=== PATIENT | male | born 1975 | race Asian ===

== ENCOUNTER 2016-07-25 18:29 | Emergency (ER) | payer OTHER ==
--- NOTE | ~2016-07-25 | EKG ---
PATIENT: LAZARO HARKINS UNIT #: [id number] Ventricular Rate: 85 BPM Atrial Rate: 85 BPM P-R Interval: 180 ms QRS Duration: 178 ms Q-T Interval: 410 ms QTC Calculation(Bezet): 487 ms P [place]: 48 degrees Calculated R [place]: -70 degrees Calculated T [place]: 87 degrees Diagnosis Line: Atrial-sensed ventricular-paced rhythm Diagnosis Line: Abnormal ECG Diagnosis Line: When compared with ECG of 30-MAR-2016 13:17, Diagnosis Line: Vent. rate has decreased BY 7 BPM Diagnosis Line: Confirmed by LUCIA YL MD ([id number]) on 07/25/2016 Diagnosis Line: 10:41:00 PM INTERPRETING MD: MALACHI PEREIRA
--- NOTE | ~2016-07-25 | CT71 ---
[facility] A Service of [facility] RADIOLOGY TEXT RESULTS PATIENT: LAZARO HARKINS LOCATION: [facility] : 79 UNIT #: [id number] AGE: [address]: Nicky Banks MD SEX: M ORDER DR: [id number] [facility]. [place], [place] [address] [id number] E MR#: [id number] Acc #: [id number] NAME: LAZARO HARKINS : 1975 SEX: M STUDY DATE/TIME: 07/25/2016 17:30 UNIT: [facility] ROOM: STUDY DESCRIPTION: CT Head Wo Contrast Attending Physician: Nicky Banks M.D. Ordering Physician: Nicky Banks M.D. Primary Care Physician: [facility] IMAGING REPORT This report is preliminary unless electronic signature is present EXAM Head CT, no contrast, 07/25/2016 COMPARISON Brain MRI 09/15/[address] without contrast. This CT exam was performed with one or more of the following radiation dose reduction techniques: automatic exposure control, adjustment of mA and/or kV according to patient size, and iterative reconstruction. CLINICAL HISTORY Perioral numbness and bilateral upper and lower extremity numbness and pain for 8 days. FINDINGS There is some hypodensity in the right half of the fco without imaging correlate on the prior brain MRI. There is no evidence of intracranial hemorrhage, and while there is slight cerebral volume loss or ventriculomegaly this is stable when compared to the prior study and brain parenchymal density is otherwise normal. IMPRESSION Area of hypodensity in the right half of the fco about 5 mm x 10 mm without imaging correlate on the prior brain MRI, question interval ischemic or other injury. Recommend followup brain MRI with and without contrast. Otherwise negative, no hemorrhage, other evidence to suggest possible mass, hydrocephalus, extraaxial fluid collection or other acute abnormality. [facility] A Service of [facility] RADIOLOGY TEXT RESULTS PATIENT: LAZARO HARKINS LOCATION: [facility] : [birth year] UNIT #: [id number] AGE: [address]: Nicky Banks MD SEX: M ORDER DR: Dictated by... Juan Balbuena M.D. THIS IS AN ELECTRONICALLY VERIFIED REPORT Juan Balbuena M.D. at 07/27/2016 9:45 AM TEV/ljd TD: 07/25/2016 22:07 JOB #: [id number] MEDICAL IMAGING REPORT Page 1 of 1 COPY
--- NOTE | ~2016-07-25 | CR72 ---
[facility] A Service of [facility] RADIOLOGY TEXT RESULTS PATIENT: LAZARO HARKINS LOCATION: [facility] : [birth year] UNIT #: [id number] AGE: [address]: Nicky Banks MD SEX: M ORDER DR: [id number] [facility] [address] [place], [place] [address] [id number] E MR#: [id number] Acc #: [id number] NAME: LAZARO HARKINS : 1975 SEX: M STUDY DATE/TIME: 07/25/2016 20:18 UNIT: [facility] ROOM: STUDY DESCRIPTION: CR Chest Single View Portable Attending Physician: Nicky Banks M.D. Ordering Physician: Nicky Banks M.D. Primary Care Physician: [facility] MEDICAL IMAGING REPORT This report is preliminary unless electronic signature is present EXAM Portable chest 07/25/2016 HISTORY Shortness of breath beginning today. FINDINGS The heart is normal in size. Cardiac pacemaker extends from the left subclavian approach with leads in the right atrium right ventricle. There is no pneumothorax. The lungs are clear. There are no pleural effusions. IMPRESSION No active pulmonary disease Dictated by... John Martinez M.D. THIS IS AN ELECTRONICALLY VERIFIED REPORT John Martinez M.D. at 07/26/2016 7:30 AM HIRA/urban TD: 07/25/2016 23:55 JOB #: [id number] MEDICAL IMAGING REPORT Page 1 of 1 COPY
[2016-07-25 17:27] LABS: BASOPHIL% 0.4 % (0-2.5); EOSINOPHIL# 0.1 X10e3 (0-0.7); EOSINOPHIL% 1.6 % (0.0-7.0); HEMATOCRIT 41.8 % (38.0-50.0); LYMPHOCYTE# 1.9 X10e3 (1.0-3.5); MEAN CELL VOLUME 84.7 FL (83-96); MEAN CORPUSCULAR HEMOGLOBIN 28.3 PG (28-34); MEAN CORPUSCULAR HGB CONC 33.5 g/dL (30-36); MEAN PLATELET VOLUME 9.9 FL (6.5-11.5); MONOCYTE# 0.5 X10e3 (0-1.0); MONOCYTE% 8.9 % (3.0-12.0); NEUTROPHIL# 3.1 X10e3 (1.5-7.1); NEUTROPHIL% 55.1 % (40-75); PLATELET COUNT 224 X10e3 (140-420); RED BLOOD COUNT 4.94 X10e (3.90-5.60); RED CELL DISTRIBUTION WIDTH 13.2 % (11.0-15.5); WHITE BLOOD COUNT 5.5 X10e3 (4.0-10.5)
[2016-07-25 17:31] LABS: DIFF IND NO
[2016-07-25 17:46] LABS: PROTHROMBIN TIME (PATIENT) 10.2 SECONDS (9.6-11.5)
[2016-07-25 17:56] LABS: ALBUMIN SERUM 3.7 g/dL (3.5-5.0); ALKALINE PHOSPHATASE 99 U/L (32-92); ALT (SGPT) 29 U/L (10-40); AST (SGOT) 25 U/L (10-42); BILIRUBIN,TOTAL 0.4 mg/dL (0.2-2.0); BLOOD UREA NITROGEN 9 mg/dL (9-23); CALCIUM SERUM 9.3 mg/dL (8.4-10.2); CARBON DIOXIDE 26 mmol/L (22-31); CHLORIDE 97 mmol/L (100-111); CREATININE SERUM 0.6 mg/dL (0.6-1.4); GLOM FILT RATE Estimated 126.7 mL/min (>60); GLUCOSE FASTING 370 mg/dL (70-110); POTASSIUM 4.2 mmol/L (3.5-5.1); PROTEIN TOTAL SERUM 7.2 g/dL (6.0-8.3); SODIUM 133 mmol/L (135-145)
[2016-07-25 17:57] LABS: BILIRUBIN, DIRECT <0.1 mg/dL (0.0-0.2); BILIRUBIN,INDIRECT 0.3 mg/dL (0.0-0.9)
[~2016-07-25 18:29] MED LIST: ANEXSIA 5/325 M1 TA1 PO; CEPHALEXIN500 M1 PO; GLUCOPHAGE500 MG PO; METFORMIN HCL500 M1 PO; ROBITUSSIN-DM118 ML PO; THORAZINE25 MG PO; VIBRAMYCIN100 M1 PO; ZITHROMAX1 G/PKT PO
[2016-07-25 19:47] LABS: URINE SOURCE CLEAN CATCH
[2016-07-25 19:58] LABS: URINE APPEARANCE CLEAR; URINE BILIRUBIN NEG (NEG); URINE BLOOD NEG (NEG); URINE COLOR YELLOW; URINE GLUCOSE >1000 MG/DL (NEG); URINE KETONE NEG (NEG); URINE LEUKOCYTE ESTERASE NEG (NEG); URINE NITRATE NEG (NEG); URINE PROTEIN NEG (NEG); URINE SPECIFIC GRAVITY 1.033 (1.003-1.035); URINE UROBILINOGEN 0.2 MG/DL (NEG)
[2016-07-25 20:05] LABS: CULTURE INDICATED? NO
[2016-07-25 21:11] LABS: POC - CKMB 2.7 ng/mL (0.0-7.9); POC - TROPONIN <0.05 ng/mL (<=0.05)
== END 2016-07-25 21:20 | disposition home or self-care (01) ==
LOC: CED 18:29
PROVIDERS: Emergency Medicine
DX: R51 Headache (principal); E11.9 Type 2 diabetes mellitus without complications; I10 Essential (primary) hypertension
CPT/HCPCS: 36415; 70450; 71010; 80048; 80076; 81003; 82553; 82947; 84484; 85025; 85610; 93005; 96360; 99284